=== PATIENT | female | born 1975 | race Caucasian/White ===

== ENCOUNTER → 2020-08-19 | Day surgery (SDC) | payer OTHER ==
--- NOTE | 2020-08-20 16:20 | PATH ---
Surgical Pathology Report Patient Name: WES SMITH [facility]. Rec. #: [id number] /Age/Gender: 1975 (Age: 45) / F Account: [id number] Location: [facility] Taken: 08/19/2020 Received: 08/19/2020 Reported: 08/20/2020 Physicians: Steven Fernández M.D. Specimen(s) Received A: RIGHT BREAST SPECIMEN WITH CALCIFICATIONS B: RIGHT BREAST SPECIMEN WITHOUT CALCIFICATIONS Clinical History Non-palpable lesion Mammographic findings: Microcalcification, suspicious Final Diagnosis A. BREAST, RIGHT, WITH CALCIFICATIONS, STEREOTACTIC BIOPSY: FRAGMENTS OF INTRADUCTAL PAPILLOMA WITH SCLEROSIS AND ASSOCIATED CALCIFICATIONS. FIBROCYSTIC CHANGES INCLUDING CYSTIC AND PAPILLARY APOCRINE METAPLASIA. FOCAL CHANGES SUGGESTIVE OF CYST RUPTURE AND REACTION. B. BREAST, RIGHT, WITHOUT CALCIFICATIONS, STEREOTACTIC BIOPSY: FRAGMENTS OF INTRADUCTAL PAPILLOMA WITH SCLEROSIS AND FEW ASSOCIATED CALCIFICATIONS. APOCRINE ADENOSIS AND STROMAL FIBROSIS. (SEE NOTE). Note: Myoepithelial immunohistochemical markers (SMM-HC & p63, performed at [facility]) demonstrate the presence of myoepithelial cells in the focus of apocrine adenosis. This finding supports the diagnosis. Positive and negative controls (internal if applicable) show appropriate results. Electronically Signed Linn Perea M.D. Gross Description A. Received in formalin labeled "right breast with calcifications," is a 3.3 x 2.2 x 0.3 cm aggregate of park-yellow, irregular to cylindrical portions of fibroadipose tissue. The formalin is filtered and the specimen is entirely submitted in 2 cassettes. B. Received in formalin labeled "right breast without calcifications," is a 3.7 x 2.5 x 0.3 cm aggregate of multiple park-yellow, irregular to cylindrical portions of fibroadipose tissue. The formalin is filtered and the specimen is entirely submitted in 2 cassettes. Time to formalin fixation: 5 minutes Total formalin fixation time: approximately 8 hours. /08/19/2020 [facility]08/19/2020
== END | disposition home or self-care (01) ==
LOC: FMAMMOTONE 08:47
PROVIDERS: ATTEND Registered Nurse
PROC: 0HBT3ZX Excision of Right Breast, Percutaneous Approach, Diagnostic (ICD-10-PCS; principal; 2020-08-19)
DX: D24.1 Benign neoplasm of right breast (principal); N64.89 Other specified disorders of breast; N60.31 Fibrosclerosis of right breast; R92.1 Mammographic calcification found on diagnostic imaging of breast
CPT/HCPCS: 19081; 76098-TC-FY; 87899; 88305-TC; A4648

== ENCOUNTER 2020-10-12 04:18 | Day surgery (SDC) | payer OTHER ==
[2020-10-11 14:37] VITALS: BMI 43.5
[2020-10-12] MEDS ORDERED: MIDAZOLAM HCL 2 MG/2 ML SINGLE DOSE VIAL ONE (10:32)
[2020-10-12] MEDS ORDERED: PROPOFOL 20 ML ONE ×2 (10:32)
[2020-10-12] MEDS ORDERED: ONDANSETRON 4 MG/2 ML VIAL IVPUSH PRN (10:36)
[2020-10-12] MEDS ORDERED: LACTATED RINGERS SOLUTION 1,000 ML IV SCH (10:45)
[2020-10-12] MEDS ORDERED: ceFAZolin SODIUM 1 GM VIAL IVPB ONE (10:58)
[2020-10-12] MEDS ORDERED: LIDOCAINE HCL 1%, 10 MG/ML (20ML VIAL) INF ONE (11:03)
[2020-10-12 14:43] VITALS: BP 126/65; PULSE 69; TEMP 97
== END 2020-10-12 14:46 | disposition home or self-care (01) ==
LOC: JASU-SURG 04:18
PROVIDERS: ATTEND Surgery
PROC: 0HBT0ZX Excision of Right Breast, Open Approach, Diagnostic (ICD-10-PCS; principal; 2020-10-12 10:00)
DX: D24.1 Benign neoplasm of right breast (principal)
CPT/HCPCS: 19281; 76098-TC-FY; 81025; 88307-TC; 94760